=== PATIENT | male | born 1985 | race Caucasian/White ===

== ENCOUNTER 2016-06-24 14:13 | Emergency (ER) | payer MEDICAID ==
[~2016-06-24] VITALS: Ht 172.7 cm; Wt 97.5 kg
--- NOTE | 2016-06-24 14:20 | NUR ---
RECEIVED PT TO BED #6 AND WILL ASSUME CARE
[2016-06-24 14:30] VITALS: BP 134/91; PULSE 86; RESP 16; TEMP 97.9; O2SAT 97
--- NOTE | 2016-06-24 14:40 | NUR ---
PT STATES THAT HE WAS IN A RIVERBED AND LACERATED HIS LEFT GREAT AND SECOND TOE ON A GLASS BOTTLE. BLEEDING IS CONTROLLED.
[2016-06-24] MEDS ORDERED: BACITRACIN 1 GM OINT TP ONE (14:45)
[2016-06-24] MEDS ORDERED: LIDOCAINE 1% 10 MG/ML, 20 ML MDV IJ ONE (14:45)
--- NOTE | 2016-06-24 15:06 | NUR ---
ER MD Lerner at bedside evaluating the patient
--- NOTE | 2016-06-24 15:20 | NUR ---
Patient has a 3 cm laceration to right toe. Dr. Lerner applied sutures using sterile technique. Edges well approximated. Site cleansed with NS & iodine. Dressing of finesse applied to site. No bleeding noted. Pt tolerated well.
[2016-06-24 16:08] VITALS: BP 122/81; PULSE 83; RESP 16; TEMP 98.1; O2SAT 98
--- NOTE | 2016-06-24 16:08 | NUR ---
Patient given written and verbal discharge instructions and verbalizes understanding. ER MD Lerner discussed with patient the results and treatment provided. Patient in stable condition. ID arm band removed. Rx of motrin given. Patient educated on pain management and to follow up with PMD. Pain Scale 0/10. Opportunity for questions provided and answered.
== END 2016-06-24 16:08 | disposition home or self-care (01) ==
LOC: SED 14:13
DX: S91.111A Laceration without foreign body of right great toe without damage to nail, initial encounter (principal); S91.114A Laceration without foreign body of right lesser toe(s) without damage to nail, initial encounter; W22.8XXA Striking against or struck by other objects, initial encounter; Y93.89 Activity, other specified; Y92.89 Other specified places as the place of occurrence of the external cause; Y99.8 Other external cause status
CPT/HCPCS: 12002; 73660; 99284; J2001